=== PATIENT | female | born 1970 | race Caucasian/White ===

== ENCOUNTER 2021-08-08 16:14 | Inpatient (IN) | payer BC ==
[~2021-08-08] VITALS: Ht 175.3 cm; Wt 91.2 kg
[~2021-08-08 16:14] MED LIST: ADIPEX-P37.5 M1 PO; ASPIR 8181 MG PO; ASPIRIN81 MG PO; BACTROBAN OINT22 GM EXT; CEFUROXIME500 MG PO; CLEOCIN HCL300 MG PO; CYMBALTA60 MG PO; FISH OIL 1,0001 EAC1 PO; HUMALOG 10100 UNITS/ SC; HYDROCODON-ACE1 EAC4 PO; IBUPROFEN800 MG PO; JANUMET 50-5001 EACH PO; LANTUS SOL100 UNIT/1 SQ; LIPITOR TAB 2020 MG PO; LISINOPRIL2.5 MG PO; LORTAB 5-325 M1 EACH PO; METOPROLOL TART25 MG PO; MULTIVITAMINS1 EAC1 PO; NORVASC10 MG PO; OZEMPIC INJ; TYLENOL 500 MG500 MG PO; WELLBUTRIN SR150 MG PO
[2021-08-08 18:18] LABS: RED BLOOD COUNT 4.41 M/UL (4.00-5.10); WHITE BLOOD COUNT 19.5 K/UL (4.5-11.0)
[2021-08-08 18:32] LABS: BUN/CREATININE RATIO 21 (0-10)
[2021-08-09 06:50] LABS: HEMOGLOBIN 10.8 gm/dl (12.3-15.3); RED BLOOD COUNT 4.06 M/UL (4.00-5.10); WHITE BLOOD COUNT 16.2 K/UL (4.5-11.0)
[2021-08-09 07:26] LABS: BUN/CREATININE RATIO 26 (0-10)
--- NOTE | 2021-08-09 17:26 | NUR ---
1625 PATIENT AWOKE FLUSHED AND SOMEWHAT DISORIENTED, FELT HOT, CHECKED TEMP AND 101.7. GAVE PRN MOTRIN AND GAVE PATIENT A COLD CLOTH FOR HER FOREHEAD. RE-CHECKED TEMP AT 1725 AND WAS NORMAL AT 98.8, AND PATIENT STATED SHE FELT MUCH BETTER.
[2021-08-10 06:26] LABS: HEMOGLOBIN 9.9 gm/dl (12.3-15.3); RED BLOOD COUNT 3.69 M/UL (4.00-5.10); WHITE BLOOD COUNT 15.9 K/UL (4.5-11.0)
[2021-08-10 06:56] LABS: BUN/CREATININE RATIO 20 (0-10)
[2021-08-11 06:09] LABS: HEMOGLOBIN 10.2 gm/dl (12.3-15.3); RED BLOOD COUNT 3.82 M/UL (4.00-5.10); WHITE BLOOD COUNT 14.3 K/UL (4.5-11.0)
--- NOTE | 2021-08-11 19:00 | NUR ---
ATTEMPTED TO TURN BED ALARM ON PT'S BED AND EDUCATED PT TO CALL FOR HELP WHEN GETTING UP TO GO THE RESTROOM. PT BECAME VERY UPSET AND REFUSED BED ALARM. PT STATED THAT SHE DID NOT NEED ANY HELP GETTING UP. EDUCATED PT THAT SHE SCREENS IN A FALL RISK AND THAT WE NEED TO PLACE HER IN A YELLOW GOWN AND TURN ON HER BED ALARM FOR SAFETY. PT CONTINUES TO REFUSE BED ALARM AND YELLOW GOWN AT THIS TIME.
[2021-08-12 07:36] LABS: HEMOGLOBIN 9.7 gm/dl (12.3-15.3); RED BLOOD COUNT 3.71 M/UL (4.00-5.10); WHITE BLOOD COUNT 11.9 K/UL (4.5-11.0)
[2021-08-13 06:15] LABS: HEMOGLOBIN 9.3 gm/dl (12.3-15.3); RED BLOOD COUNT 3.59 M/UL (4.00-5.10); WHITE BLOOD COUNT 12.7 K/UL (4.5-11.0)
--- NOTE | 2021-08-13 11:52 | NUR ---
WENT INTO PTS ROOM TO START HER NEW ANTIBOTIC MERREM AND PT STATED THAT SHE WAS SUPPOSED TO START THIS YESTERDAY AND SHE DID NOT, THE DOCTOR ORDERED IT TO START TODAY. PT WAS UPSET THAT SHE DID NOT GET IT YESTERDAY AND TOLD ME THAT SHE WANTED THE DOCTORS WROTE UP. I TOLD MY [employer]OD AND [employer] RESEARCH SCIENTIST ABOUT IT AND CALLED THE DOCTOR AND MADE HIM AWARE THAT SHE WAS UPSET. DR. SALAZAR IS CURRENTLY IN THE ROOM WITH PT
[2021-08-14 07:27] LABS: HEMOGLOBIN 8.9 gm/dl (12.3-15.3); RED BLOOD COUNT 3.46 M/UL (4.00-5.10); WHITE BLOOD COUNT 12.4 K/UL (4.5-11.0)
[2021-08-15 04:41] LABS: HEMOGLOBIN 9.1 gm/dl (12.3-15.3); RED BLOOD COUNT 3.47 M/UL (4.00-5.10); WHITE BLOOD COUNT 12.4 K/UL (4.5-11.0)
--- NOTE | 2021-08-15 08:47 | NUR ---
Spoke with anesthesia when he came to see the patient pre-operatively and reported patient's elevated blood pressure. He said it would be treated intra-operatively if necessary. Will notify hospitalist when he rounds for futher instruction.
--- NOTE | 2021-08-15 23:02 | NUR ---
PATIENT RESTING IN BED SEEMINGLY SLEEPING. O2 WAS IN USE AT 190 4L. TELE SINUS 80S AND O2 SAT WAS 99%. AT 1914 TITRATED PATIENT DOWN TO 3L NC. PATIENT RESTING IN BED WITH NO COMPLAINTS AND O2 SAT CONTINUE TO BE 99%. AT 1944 TURNED PATIENT DOWN TO 2 L N/C AND PATIENT STILL HAS NO COMPLAINTS SEEMINGLY SLEEPING O2 SAT 99%. FINALLY TURNED PATIENT O2 OFF AND LEFT N/C IN NOSE WHILE PATIENT RESTING WITH NO COMPLAINTS AT THIS TIME. PATIENT O2 SAT 95% ON ROOMAIR TELE IN USE SINUS 80S AND NO COMPLAINTS AT THIS TIME. CALL LIGHT IN REACH BED IN LOW POSITION AND SIDE RAILS ELEVATED.
[2021-08-16 02:38] LABS: HEMOGLOBIN 9.1 gm/dl (12.3-15.3); RED BLOOD COUNT 3.5 M/UL (4.00-5.10)
[2021-08-16 19:17] LABS: BORDETELLA PARAPERTUSSIS Not Detected (Not Detectd); BORDETELLA PERTUSSIS Not Detected (Not Detectd); CHLAMYDIA PNEUMONIAE Not Detected (Not Detectd); CORONAVIRUS HKU1 Not Detected (Not Detectd); CORONAVIRUS NL63 Not Detected (Not Detectd); CORONAVIRUS OC43 Not Detected (Not Detectd); CORONOAVIRUS 229E Not Detected (Not Detectd); HUMAN METAPNEUMOVIRUS Not Detected (Not Detectd); HUMAN RHINOVIRUS/ENTEROVIRUS Not Detected (Not Detectd); INFLUENZA A Not Detected (Not Detectd); INFLUENZA B Not Detected (Not Detectd); MYCOPLASMA PNEUMONIAE Not Detected (Not Detectd); PARAINFLUENZA VIRUS 1 Not Detected (Not Detectd); PARAINFLUENZA VIRUS 2 Not Detected (Not Detectd); PARAINFLUENZA VIRUS 3 Not Detected (Not Detectd); PARAINFLUENZA VIRUS 4 Not Detected (Not Detectd); RESPIRATORY SYNCYTIAL VIRUS Not Detected (Not Detectd)
[2021-08-16 20:08] LABS: SARS-CoV-2 NOT DETECTED (Not Detectd)
[2021-08-17 02:52] LABS: HEMOGLOBIN 9.7 gm/dl (12.3-15.3); RED BLOOD COUNT 3.71 M/UL (4.00-5.10); WHITE BLOOD COUNT 14.2 K/UL (4.5-11.0)
--- NOTE | 2021-08-17 09:31 | NUR ---
NOTIFIED DR SOTO WITH PATIENT REQUEST FOR PROTONIX. NEW ORDER NOTED.
[2021-08-18 03:23] LABS: HEMOGLOBIN 10.1 gm/dl (12.3-15.3); RED BLOOD COUNT 3.86 M/UL (4.00-5.10); WHITE BLOOD COUNT 13.3 K/UL (4.5-11.0)
[2021-08-18 04:10] LABS: CREATININE, URINE 31.2 mg/dL (Not Estab.)
--- NOTE | 2021-08-18 16:09 | NUR ---
CALLED DR SOTO RELATED TO ELEVATED BLOOD PRESSURE. NEW ORDERS NOTED.
[2021-08-19 08:04] LABS: HEMOGLOBIN 9.6 gm/dl (12.3-15.3); RED BLOOD COUNT 3.76 M/UL (4.00-5.10); WHITE BLOOD COUNT 12.6 K/UL (4.5-11.0)
[2021-08-20 08:35] LABS: HEMOGLOBIN 10.1 gm/dl (12.3-15.3); RED BLOOD COUNT 3.87 M/UL (4.00-5.10); WHITE BLOOD COUNT 11.2 K/UL (4.5-11.0)
[2021-08-20] MEDS ORDERED: HYDRALAZINE HCL25 MG PO (11:55)
[2021-08-20] MEDS ORDERED: ASPIRIN EC81 MG PO (11:55)
[2021-08-20] MEDS ORDERED: LOPRESSOR 25 MG25 MG PO (11:55)
[2021-08-20] MEDS ORDERED: AMLODIPINE BESYL5 MG PO (11:55)
[2021-08-20] MEDS ORDERED: LIPITOR40 MG PO (12:26)
[2021-08-20] MEDS ORDERED: NOVOLOG FL100 UNIT/1 SC (12:26)
[2021-08-22 12:11] LABS: CREATININE, URINE 41.2 mg/dL (Not Estab.)
== END 2021-08-22 16:23 | disposition home health service (06) | DRG 853 ==
LOC: ER1 16:14 → CDU 21:15 → MED SURG 4 21:15
PROVIDERS: Internal Medicine; Internal Medicine Nephrology; Physician Assistant; Physician Assistant Medical; Podiatrist Foot & Ankle Surgery; ADMIT Emergency Medicine
PROC: 0JBR0ZZ Excision of Left Foot Subcutaneous Tissue and Fascia, Open Approach (ICD-10-PCS; 2021-08-13)
PROC: 0HRNXK3 Replacement of Left Foot Skin with Nonautologous Tissue Substitute, Full Thickness, External Approach (ICD-10-PCS; 2021-08-13)
PROC: 3E0102A Introduction of Anti-Infective Envelope into Subcutaneous Tissue, Open Approach (ICD-10-PCS; 2021-08-13)
PROC: 3E0U029 Introduction of Other Anti-infective into Joints, Open Approach (ICD-10-PCS; 2021-08-15)
PROC: 0HRNXK3 Replacement of Left Foot Skin with Nonautologous Tissue Substitute, Full Thickness, External Approach (ICD-10-PCS; principal; 2021-08-15 11:45)
PROC: 0S9N0ZZ Drainage of Left Metatarsal-Phalangeal Joint, Open Approach (ICD-10-PCS; principal; 2021-08-15 11:45)
PROC: 02HV33Z Insertion of Infusion Device into Superior Vena Cava, Percutaneous Approach (ICD-10-PCS; 2021-08-21)
PROC: B548ZZA Ultrasonography of Superior Vena Cava, Guidance (ICD-10-PCS; 2021-08-21)
DX: A40.1 Sepsis due to streptococcus, group B (principal); N17.0 Acute kidney failure with tubular necrosis; I50.31 Acute diastolic (congestive) heart failure; R18.8 Other ascites; L97.429 Non-pressure chronic ulcer of left heel and midfoot with unspecified severity; L97.419 Non-pressure chronic ulcer of right heel and midfoot with unspecified severity; M86.8X7 Other osteomyelitis, ankle and foot; L03.116 Cellulitis of left lower limb; E87.1 Hypo-osmolality and hyponatremia; Z20.822 Contact with and (suspected) exposure to COVID-19; N14.1 Nephropathy induced by other drugs, medicaments and biological substances; T36.8X5A Adverse effect of other systemic antibiotics, initial encounter; E11.40 Type 2 diabetes mellitus with diabetic neuropathy, unspecified; I11.0 Hypertensive heart disease with heart failure; E11.69 Type 2 diabetes mellitus with other specified complication; K21.9 Gastro-esophageal reflux disease without esophagitis; D50.9 Iron deficiency anemia, unspecified; E78.5 Hyperlipidemia, unspecified; E11.43 Type 2 diabetes mellitus with diabetic autonomic (poly)neuropathy; E11.65 Type 2 diabetes mellitus with hyperglycemia; K31.84 Gastroparesis; F17.210 Nicotine dependence, cigarettes, uncomplicated; M10.9 Gout, unspecified; N20.0 Calculus of kidney; E11.621 Type 2 diabetes mellitus with foot ulcer; Z79.4 Long term (current) use of insulin; Z98.891 History of uterine scar from previous surgery; Z98.51 Tubal ligation status; Z82.49 Family history of ischemic heart disease and other diseases of the circulatory system; Z83.3 Family history of diabetes mellitus; Z80.41 Family history of malignant neoplasm of ovary; Z80.0 Family history of malignant neoplasm of digestive organs; Z88.5 Allergy status to narcotic agent; Z88.6 Allergy status to analgesic agent; Z79.82 Long term (current) use of aspirin
CPT/HCPCS: 36415; 71045; 71046; 71250; 73630; 73718; 76705; 77001; 80048; 80053; 80202; 81001; 82043; 82436; 82570; 82728; 82962; 83036; 83540; 83550; 83605; 83690; 83735; 83880; 84100; 84133; 84156; 84300; 84703; 85025; 85027; 85652; 86140; 87040; 87070; 87077; 87186; 87205; 87633; 93925; 93971; 96365; 96375; 99284; C1713; C1751; C1769; C9113; J1100; J1335; J1580; J1642; J1650; J1756; J1940; J2001; J2020; J2185; J2250; J2405; J2543; J2550; J2704; J2710; J2765; J2795; J3010; J3370; J7030; J7070; J7120; P9047; Q4133; U0002

== ENCOUNTER → 2021-11-02 | Outpatient (CLI) | payer BC ==
[~2021-11-02] MED LIST changes: +AMLODIPINE BESYL5 MG PO; +ASPIRIN EC81 MG PO; +HYDRALAZINE HCL25 MG PO; +LIPITOR40 MG PO; +LOPRESSOR 25 MG25 MG PO; +NOVOLOG FL100 UNIT/1 SC
== END ==
LOC: OPSV 10:33
DX: Z45.2 Encounter for adjustment and management of vascular access device (principal)
CPT/HCPCS: G0463